=== PATIENT | male | born 1955 | race Caucasian/White ===

== ENCOUNTER 2021-06-15 13:45 | Emergency (ER) | payer OTHER, SELFPAY ==
--- NOTE | ~2021-06-15 | XR_ITS ---
XR shoulder RT min 2V DATE: 06/15/2021 14:11 INDICATION: Fall. Right shoulder injury, pain TECHNIQUE: 4 views COMPARISON: None FINDINGS: No fracture or dislocation, periosteal reaction or bone destruction. No abnormal right shou lder soft tissue calcification. IMPRESSION: No significant abnormality of the right shoulder Reviewed, dictated and finalized at location A.
--- NOTE | ~2021-06-15 | XR_ITS ---
EXAMINATION: XR hand RT min 3V INDICATION: Right hand pain TECHNIQUE: Three views of the right hand are obtained. COMPARISON: None available FINDINGS: There is no fracture, dislocation, or subluxation. 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 There is heterotopic ossification medial to the fourth distal i nterphalangeal joint. IMPRESSION: 1. No acute osseous abnormality. Reviewed, dictated and finalized at location B.
[2021-06-15 13:54] VITALS: BP 157/102; PULSE 63; RESP 18; TEMP 36.7; O2SAT 99
[2021-06-15 15:07] VITALS: BP 131/99; PULSE 60; RESP 16; O2SAT 99
--- NOTE | 2021-06-15 15:43 | ED.UPPEXIN ---
HPI - Extremity Injury (Upper) General Chief Complaint: Extremity Injury, Upper Stated Complaint: fall, right hand injury Time Seen by Provider: 06/15/21 15:06 Source: patient Mode of arrival: ambulatory Limitations: no limitations History of Present Illness HPI narrative: Patient is a 65-year-old male who presents complaining of right hand and right shoulder pain after fall. Patient reports he was mowing yard and when going backward, tripped and fell back into street on concrete. He denies hitting head, denies LOC. Patient reports tenderness to right thenar palm and right shoulder, small abrasion noted to right hand. He reports taking ibuprofen for pain prior to arrival and reports moderate relief. He denies significant medical history. MD complaint: injury to: right, shoulder and hand Related Data Home Medications Medication Instructions Recorded Confirmed esomeprazole magnesium 20 mg 20 mg PO DAILY 12/03/19 11/05/20 capsule,delayed release loratadine 10 mg tablet 10 mg PO DAILY 12/03/19 11/05/20 Allergies Allergy/AdvReac Type Severity Reaction Status Date / Time No Known Allergies Allergy Unknown Verified 06/15/21 15:03 Review of Systems Review of Systems: Narrative: CONSTITUTIONAL: Denies fever, chills, or sweats. EYES: Denies visual changes, redness, or discharge. ENT: Denies rhinorrhea, congestion, sore throat, or otalgia. CARDIOVASCULAR: Denies chest pain, palpitations, or edema. RESPIRATORY: Denies cough or dyspnea. GASTROINTESTINAL: Denies abdominal pain, nausea, vomiting, or diarrhea. GENITOURINARY: Denies dysuria or hematuria. SKIN: Denies rash or itching. MUSCULOSKELETAL: Reports right hand and right shoulder pain NEUROLOGIC: Denies headache, numbness, dizziness, or weakness. PSYCHIATRIC: Denies anxiety or depression. [facility] Family History Family History Mother Family history of Alzheimer's disease Social History Social History (Updated 06/15/21 @ 15:47 by DENA Li) Smoking status: Former smoker Alcohol intake: current Substance use: never Comments At the time of signature, I have reviewed and agree with nursing past medical, surgical, social, and family history unless otherwise noted. Please see nursing chart for further information. There is no relevant family history pertinent to the presenting complaint. Exam Narrative: Exam Narrative: GENERAL: Well-appearing, well-nourished, and in no acute distress. HEAD: Normocephalic, atraumatic. EYES: EOMI. No redness or drainage. Conjunctiva are normal. ENT: Mucous membranes pink and moist. CHEST: No respiratory distress. Clear to auscultation. HEART: Regular rate and rhythm. EXTREMITIES: Normal range of motion. Mild edema and tenderness with palpation to the right thenar palm, small abrasion noted. No deformity noted to right shoulder, full range of motion SKIN: Warm, dry, no rash. NEURO: No focal deficits. Alert and oriented x3. Gait steady. PSYCH: Normal affect. No signs of depression or anxiety. Course Vital Signs Vital signs: Vital Signs Temperature 36.7 C 06/15/21 13:54 Pulse Rate 63 06/15/21 13:54 Respiratory Rate 18 06/15/21 13:54 Blood Pressure 157/102 H 06/15/21 13:54 Pulse Oximetry 99 06/15/21 13:54 Temperature 36.7 C 06/15/21 13:54 Pulse Rate 60 06/15/21 15:07 Respiratory Rate 16 06/15/21 15:07 Blood Pressure 131/99 H 06/15/21 15:07 Pulse Oximetry 99 06/15/21 15:07 Reviewed. Patient has been instructed to follow-up with his PCP regarding his blood pressure. MDM - Extremity Injury (Upper) MDM Narrative Medical decision making narrative: Patient's x-rays are negative for acute osseous abnormalities. Discussed with patient most likely musculoskeletal pain. Discussed with use of NSAIDs, Tylenol and ice for pain. Tetanus updated at this time. Patient is stable for discharge to home with outpatient follow-up as needed.
[2021-06-15 16:04] VITALS: BP 141/88; PULSE 53; RESP 18; TEMP 36.6; O2SAT 99
== END 2021-06-15 16:09 | disposition home or self-care (01) ==
PROVIDERS: Emergency Provider Nurse Practitioner; PCP Family Medicine
DX: S60.221A Contusion of right hand, initial encounter (principal); S46.911A Strain of unspecified muscle, fascia and tendon at shoulder and upper arm level, right arm, initial encounter; Z87.891 Personal history of nicotine dependence; W01.0XXA Fall on same level from slipping, tripping and stumbling without subsequent striking against object, initial encounter
CPT/HCPCS: 73030; 73130; 99283

== ENCOUNTER 2021-10-16 00:13 | Day surgery (SDC) | payer MEDICARE, SELFPAY ==
[2021-10-01 12:41] VITALS: BMI 23.8
[2021-10-16 06:33] VITALS: BMI 22.8
[2021-10-16 06:35] VITALS: BP 137/100; PULSE 57; RESP 20; TEMP 36.4; O2SAT 100
[2021-10-16] MEDS: LACTATED RINGERS 1,000 ML 150 ML IV CONT (06:48)
--- NOTE | 2021-10-16 07:21 | WPDGICN ---
Assessment and Plan Assessment and plan (1) History of colon polyps: Code(s): Z86.010 - Personal history of colonic polyps Status: Acute Assessment and Plan: Patient has a history of colon polyps most recently removed in 2013. Plan is for surveillance screening colonoscopy at this time. Further recommendations will be given after endoscopy. GI Consult Note Consult date/time: 10/16/21 07:21 HPI: Geoffrey Gomez is a 66 year old male Presents for screening colonoscopy. Patient's current weight appetite bowel movements are normal. He denies abdominal pain. He has had no bleeding. Family history noncontributory. Patient does have a prior history of colon polyps. Most recent colonoscopy in 2013 revealed polyps. Patient presents today for neoplasia screening colonoscopy. Review of Systems Review of Systems: All systems reviewed & are unremarkable except as noted in HPI and below PMFSH Past Medical History Medical History (Updated 10/16/21 @ 07:22 by Lalo Spencer MD) Essential (primary) hypertension Fatty (change of) liver, not elsewhere classified Hyperlipidemia, unspecified Family History Family History Mother Family history of Alzheimer's disease Social History Social History Alcohol intake: current Drinks per week: 7 Substance use: never Living arrangements: with family Spiritual care concerns: No Meds Home Medications and Allergies Home Medications Medication Instructions Recorded Confirmed Type esomeprazole magnesium 20 mg 20 mg PO DAILY 12/03/19 10/16/21 History capsule,delayed release loratadine 10 mg tablet 10 mg PO DAILY 12/03/19 10/16/21 History sildenafil 100 mg tablet 100 mg PO DAILY PRN #6 tablet 11/05/20 10/16/21 Rx benazepril 5 mg tablet 5 mg PO DAILY #90 tablet 07/09/21 10/16/21 Rx fluticasone propionate 50 2 spray NASAL DAILY #47.4 ml 07/09/21 10/16/21 Rx mcg/actuation nasal spray,suspension metoprolol tartrate 100 mg tablet 100 mg PO Q12H #180 tablet 07/09/21 10/16/21 Rx Bifidobacterium infantis [Align] 4 mg PO DAILY 10/01/21 10/16/21 History Allergies Allergy/AdvReac Type Severity Reaction Status Date / Time No Known Allergies Allergy Unknown Verified 10/16/21 06:31 Vital Signs Vital Signs - 24 hr 10/16/21 06:35 Temperature 97.6 F Pulse Rate 57 L Respiratory Rate 20 Blood Pressure 137/100 H Pulse Oximetry 100 Exam Narrative: Physical exam reveals patient to be alert. Vital signs stable. HEENT exam is unremarkable. Patient is anicteric. Lungs are clear to auscultation and percussion. Heart is without murmur or extra sounds. Abdominal exam bowel sounds are present soft nontender with no organomegaly. Digital external rectal exam is normal.
--- NOTE | 2021-10-16 07:22 | P.PNAN_ITS ---
Anes - Initial Pre Proc Eval Procedure: Operation Date: 10/16/21 07:30 Proposed Procedures p Screening Colonoscopy - Lalo Spencer MD Date/Time: 10/16/21 07:22 Surgeon: Lalo Spencer MD Pre Op Diagnosis: neoplasm screening Patient Data Age: 66 Gender: M Height: 1.85 m Weight: 78.8 kg Last Vital Signs Temp 97.6 F 10/16/21 06:35 Pulse 57 L 10/16/21 06:35 Resp 20 10/16/21 06:35 BP 137/100 H 10/16/21 06:35 Pulse Ox 100 10/16/21 06:35 Allergies Allergy/AdvReac Type Severity Reaction Status Date / Time No Known Allergies Allergy Unknown Verified 10/16/21 06:31 Home Medications Medication Instructions Recorded Confirmed Type esomeprazole magnesium 20 mg 20 mg PO DAILY 12/03/19 10/16/21 History capsule,delayed release loratadine 10 mg tablet 10 mg PO DAILY 12/03/19 10/16/21 History sildenafil 100 mg tablet 100 mg PO DAILY PRN #6 tablet 11/05/20 10/16/21 Rx benazepril 5 mg tablet 5 mg PO DAILY #90 tablet 07/09/21 10/16/21 Rx fluticasone propionate 50 2 spray NASAL DAILY #47.4 ml 07/09/21 10/16/21 Rx mcg/actuation nasal spray,suspension metoprolol tartrate 100 mg tablet 100 mg PO Q12H #180 tablet 07/09/21 10/16/21 Rx Bifidobacterium infantis [Align] 4 mg PO DAILY 10/01/21 10/16/21 History Patient hx anesthesia problems: none Family hx anesthesia problems: none Results Review: All pre-operative results and documents have been reviewed as part of the pre-operative evaluation. [facility] Past Medical History Medical History (Updated 10/16/21 @ 07:22 by Lalo Spencer MD) Essential (primary) hypertension Fatty (change of) liver, not elsewhere classified Hyperlipidemia, unspecified Family History Family History Mother Family history of Alzheimer's disease Social History Social History Alcohol intake: current Drinks per week: 7 Substance use: never Living arrangements: with family Spiritual care concerns: No Anes - Eval Final PreProcedure Day of Procedure 10/16/21 07:22 Patient weight: normal Heart: regular rate and rhythm Lungs: clear to auscultation Airway: Mallampati scale class II Neurological: alert and oriented Last oral intake: >/= 8 hours ASA classification: II Emergent: no Anesthetic plan: proceed Anesthesia type and monitoring: general GIVS and standard monitoring Results Review: All pre-operative results and documents have been reviewed as part of the pre-operative evaluation. Informed Consent: The patient's anesthetic plan and its attendant risks and benefits were discussed with the patient/family/POA. Questions were solicited and answers provided to the satisfaction of the patient/family/POA.
[2021-10-16 07:49] VITALS: BP 120/81; PULSE 54; RESP 19; O2SAT 97
[2021-10-16 07:59] VITALS: BP 118/79; PULSE 51; RESP 27; O2SAT 100
[2021-10-16 08:09] VITALS: BP 120/88; PULSE 46; RESP 16; O2SAT 100
== END 2021-10-16 08:22 | disposition home or self-care (01) ==
PROVIDERS: PCP Family Medicine; Visit Provider Internal Medicine Gastroenterology
PROC: 0DJD8ZZ Inspection of Lower Intestinal Tract, Via Natural or Artificial Opening Endoscopic (ICD-10-PCS; CPT 45378; principal; 2021-10-16 07:30)
DX: Z12.11 Encounter for screening for malignant neoplasm of colon (principal); Z86.010 Personal history of colon polyps; K64.8 Other hemorrhoids; K57.30 Diverticulosis of large intestine without perforation or abscess without bleeding; I10 Essential (primary) hypertension; K76.0 Fatty (change of) liver, not elsewhere classified; E78.5 Hyperlipidemia, unspecified
CPT/HCPCS: G0105; J2704; J7120